=== PATIENT | male | born 1970 | race Caucasian/White ===

== ENCOUNTER → 2017-03-10 | Outpatient (CLI) | payer OTHER ==
--- NOTE | ~2017-03-10 | MR17 ---
[facility] A Service of [facility] & [facility] RADIOLOGY TEXT RESULTS PATIENT: ERROL MCKOY LOCATION: CEEG : 74 UNIT #: [id number] AGE: [address]: SHANICE TOLEDO SEX: M ORDER DR: [id number] [facility] [address] [place], [place] [address] [id number] O MR#: [id number] Acc #: [id number] NAME: ERROL MCKOY : 1970 SEX: M STUDY DATE/TIME: 03/10/2017 9:10 UNIT: CEEG ROOM: STUDY DESCRIPTION: MR Brain WWo Contrast Attending Physician: Shanice Toledo M.D. Referring Physician: Shanice Toledo M.D. Ordering Physician: Staff Doctor Not On Primary Care Physician: Bev Sandhu M.D. MRI CENTER REPORT This report is preliminary unless electronic signature is present. EXAM MRI of the brain with and without contrast dated 03/10/2017 COMPARISON None. HISTORY Patient has intermittent jerk pain of his whole body at times. It has been going on for 2-3 years. Now he also has memory loss. History of mastocytosis. FINDINGS Multisequence, multiplanar imaging of the brain was obtained with and without contrast. 20 mL of MultiHance was administered intravenously. No acute stroke, hydrocephalus or midline shift. There is a nonenhancing prominent CSF lesion noted posterior to the cerebellar vermis measuring 2.0 x 3.9 cm. It could represent brandon cisterna magna or a retrocerebellar benign arachnoid cyst. Thin coronal T2 sequence through the hippocampal formations demonstrate normal size, shape, and signal characteristics. There appears to be mild right parietal parenchymal volume loss particularly along the convexity. Asymmetrical. Postcontrast sequences do not demonstrate enhancing lesions. Mild S-shaped nasal septal deviation is seen. Paranasal sinuses are relatively well aerated with decreased pneumatization of bifrontal sinuses. Mastoid air cells and orbits do not demonstrate any significant abnormality. IMPRESSION 1. Motion artifact is noted in multiple sequences. 2. There appears to be asymmetrical parenchymal volume loss associated with biparietal lobes, particularly along the convexity. It is suggestive of atrophy. Patient has memory loss. Correlate with dementia. 3. There is retrocerebellar prominent CSF space. It could be related to STS. [facility] A Service of [facility] & [facility] / [facility] RADIOLOGY TEXT RESULTS PATIENT: ERROL MCKOY LOCATION: [facility] : 74 UNIT #: [id number] AGE: [address]: SHANICE TOLEDO SEX: M ORDER DR: brandon cisterna magna or a benign arachnoid cyst. Dictated by... Patsy Vo M.D. THIS IS AN ELECTRONICALLY VERIFIED REPORT Patsy Vo M.D. at 03/11/2017 5:24 PM CPR/aa TD: 03/10/2017 14:11 JOB #: [id number] MRI CENTER REPORT Page 1 of 1 COPY
--- NOTE | ~2017-03-10 | EE ---
Unit #: [id number] #: [id number] Patient: ERROL MCKOY [id number] [address] [address] [id number] O MR#: [id number] NAME: ERROL MCKOY : 1970 SEX: M STUDY DATE/TIME: 03/10/2017 UNIT: CEEG ROOM: STUDY DESCRIPTION: EEG Attending Physician: Shanice Yoder M.D. Referring Physician: Shanice Yoder M.D. Primary Care Physician: Bev Sandhu M.D. NEURODIAGNOSTICS REPORT EXAM EEG REASON FOR STUDY Seizure. [employer] TECHNICAL INFORMATION This is a routine EEG performed using the standard International 10-20 System of electrode placement. Photic stimulation was performed. Hyperventilation was also performed. REPORT Throughout the entire EEG, the best background rhythm seen is approximately 10 Hz. This rhythm is seen in both posterior head regions symmetrically and does attenuate to eye opening and closure. Photic stimulation was performed which did not elicit any epileptiform abnormalities. However, a good photic driving response is seen. Hyperventilation was also performed which failed to reproduce any abnormal buildup. There is no sleep recorded during the EEG. Throughout the entire study, there were no electrographic seizures recorded nor were there any independent epileptiform abnormalities seen. INTERPRETATION This is a normal awake EEG. A normal EEG does not rule out the possibility of a seizure disorder. Clinical correlation is advised. Dictated by... Stephan Sepulveda II., M.D. GWS/nidhi TD: 03/19/2017 13:04 JOB #: [id number] Unit #: [id number] #: [id number] Patient: ERROL MCKOY NEURODIAGNOSTICS REPORT Page 1 of 1 X NEURODIAGNOSTICS REPORT
== END | disposition home or self-care (01) ==
LOC: CEEG 02-22 07:30
DX: G31.9 Degenerative disease of nervous system, unspecified (principal); G25.3 Myoclonus; R41.3 Other amnesia
CPT/HCPCS: 70553; 95816; A9577